=== PATIENT | male | born 1940 | race Caucasian/White ===

== ENCOUNTER → 2018-01-26 | Outpatient (CLI) | payer MEDICARE ==
--- NOTE | 2018-01-26 16:55 | CONS ---
CONSULTATION REASON FOR CONSULTATION: This is a consultation note for sleep apnea. HISTORY OF PRESENT ILLNESS: This patient was diagnosed having obstructive sleep apnea more than 15 years ago. This patient over the years has utilized 3 different CPAP machines and the last CPAP machine that he has had was at least 10 years old. He has a [employer] older generation CPAP unit which is set at a pressure of 9 cm of water. He is using a Comfort Gel blue nose mask. On today's evaluation the patient is coming in feeling tired and having problems with memory and he feels exhausted and he is waking up tired despite averaging about 7 hours of CPAP use per night. The functionality of his machine is being questioned at this point. He is not sure if he snores while on CPAP therapy. He does not wake up gasping for air or any choking sensation. His current [place] Score is at 9. No recent weight gain or weight loss. The patient is requesting reevaluation. PAST MEDICAL HISTORY: Obstructive sleep apnea. He also has history of pacemaker insertion. Hypertension, hyperlipidemia, and BPH and chronic depression. PAST SURGICAL HISTORY: Includes a pacemaker insertion, cholecystectomy, shoulder surgery, cataract surgery with lens implants and orthopedic knee surgery. DRUG ALLERGIES: Not known. OUTPATIENT MEDICATION LIST: Includes: 1. Losartan 100 mg p.o. daily. 2. Pravastatin 40 mg p.o. daily. 3. Loratadine 10 mg p.o. daily. 4. Doxazosin 4 mg p.o. daily. 5. Singular 10 a day. 6. Paxil 20 daily. 7. Aspirin 81 mg p.o. daily. 8. Motrin as needed. 9. Atenolol 25 mg 2 tablets a day. 10.Warfarin 5 mg, half a tablet Thursday, Saturdays and 1 tablet/10 mg for the rest of the week. FAMILY HISTORY: Noncontributory and negative for sleep apnea. SOCIAL HISTORY: Nonsmoker. No history of alcohol. No tobacco. No history of IV drugs. REVIEW OF SYSTEMS: 12-point review of system was done. He has excessive exhaustion and fatigued and wakes up tired. No insomnia. No grinding of the teeth. No sleepwalking. No anxiety or panic attacks. No palpitation. No heartburn. No anxiety or depression. No restlessness lower extremities. No sleepwalking or sleep talking. No claustrophobia. No sexual dysfunction. No sleep paralysis, hallucinations or cataplexy at this point. PHYSICAL EXAMINATION: His current vitals BP is 120/75, pulse 80, respirations 16, temperature 97.2, saturation 98% on room air. Height is 5 feet 8 inches, weight is 219, BMI 33.2. Neck size is 17-1/4 of an inch. GENERAL APPEARANCE: Calm comfortable. HEENT head is atraumatic, normocephalic. Neck short supple crowding of posterior pharynx, Mallampati class IV. LUNGS: Clear to auscultation. HEART: Sounds are regular rate and rhythm. Normal S1, S2. No S3, S4. No murmurs. ABDOMEN: Soft, nontender. No organomegaly. EXTREMITIES: No edema. No cyanosis or clubbing. IMPRESSION: 1. Symptomatic obstructive sleep apnea. The patient has not had an evaluation for more than 10 years. He is utilizing an older generation CPAP unit which is set at a pressure of 9 cm of water. The efficacy of the treatment is being under question as the patient is feeling more sleepy and exhausted during the day. In addition to that, he is having some short-term memory issues. His current [place] Score is at 9. PLAN: We will set up this patient for a split night study. This will be needed to reconfirm presence of obstructive sleep apnea and severity and following that, we will give the patient CPAP titration during which the pressure will be updated. The need for oxygen therapy will be assessed while on CPAP therapy especially with his underlying memory loss. He will be given mask interface and will make further recommendations accordingly. MMODL / IJN: [id number] /
== END | disposition home or self-care (01) ==
LOC: SLEEP 12:23
PROVIDERS: ATTEND Internal Medicine Critical Care Medicine
DX: G47.33 Obstructive sleep apnea (adult) (pediatric) (principal); I10 Essential (primary) hypertension; E78.5 Hyperlipidemia, unspecified; N40.0 Benign prostatic hyperplasia without lower urinary tract symptoms; F32.9 Major depressive disorder, single episode, unspecified; Z90.49 Acquired absence of other specified parts of digestive tract; Z98.890 Other specified postprocedural states; Z79.899 Other long term (current) drug therapy; Z79.82 Long term (current) use of aspirin; Z79.1 Long term (current) use of non-steroidal anti-inflammatories (NSAID); Z99.89 Dependence on other enabling machines and devices
CPT/HCPCS: 99211

== ENCOUNTER → 2018-04-27 | Outpatient (CLI) | payer MEDICARE ==
--- NOTE | 2018-04-27 18:16 | PN ---
PROGRESS NOTE This patient is 77, diagnosed having obstructive sleep apnea more than 15 years ago. During the years, he had 3 different CPAP units and his last machine was given to him approximately 10 years ago. This was an older generation [employer] unit. This was being used at the pressure of 9 cm of water. The patient saw me in the office and the patient underwent another CPAP titration and he was upgraded to an [employer] AutoSet unit which was set at a pressure of 9 cm of water also. On today's evaluation, he is coming in for a compliancy check. The patient is utilizing CPAP every night. He is benefiting from the treatment. I adjusted his humidity control and climate control to automatic mode. The patient has been averaging around 8.6 hours of CPAP use per night. His CPAP use for more than 4 hours is 100% of the time and his leak factor is 24 L/minute while using the Arboleda FX nose pillow. His apnea-hypopnea index while on treatment is down to 1.5. He has no specific complaints. Sleep quality is good. No major hypersomnia or sleepiness during the day. No other complaints otherwise. REVIEW OF SYSTEMS: A 12-point review of system was done. Positive findings are mentioned above ion history of present illness. BP is 115/72, pulse 60 respirations 16, weight is 215, temperature 98.3, saturation 98% on room air. GENERAL APPEARANCE: Calm, comfortable. Head is atraumatic, normocephalic. NECK: Supple. There is no supple. There is no JVD. There is no goiter or neck mass. Mallampati class IV. LUNGS: Clear to auscultation. HEART: Sounds regular rate and rhythm. Normal S1, S2. No S3. No murmurs. ABDOMEN: Soft, nontender. No organomegaly. EXTREMITIES: No edema. No cyanosis or clubbing. NEUROLOGIC: Alert and oriented x3. There are no focal neurological deficits. Psychiatrically, negative for anxiety or depression. IMPRESSION: 1. Obstructive sleep apnea, moderately severe, apnea-hypopnea index of 23. Patient undergoes successful CPAP therapy off with a pressure of 9 cm of water. Currently improved. Compliance data is reviewed. 2. History of. 3. Hypertension hyperlipidemia. 4. Benign prostatic hypertrophy. 5. Depression. 6. History of pacemaker insertion. PLAN: 1. Continue CPAP therapy at the same level of pressure. 2. Compliance data was reviewed and the results were good. 3. See me back in a year's time in followup, earlier if needed. MMODL / IJN: [id number] /
== END | disposition home or self-care (01) ==
LOC: SLEEP 15:36
PROVIDERS: ATTEND Internal Medicine Critical Care Medicine
DX: G47.33 Obstructive sleep apnea (adult) (pediatric) (principal); I10 Essential (primary) hypertension; E78.5 Hyperlipidemia, unspecified; N40.0 Benign prostatic hyperplasia without lower urinary tract symptoms; F32.9 Major depressive disorder, single episode, unspecified; Z95.0 Presence of cardiac pacemaker

== ENCOUNTER → 2019-05-17 | Outpatient (CLI) | payer MEDICARE ==
--- NOTE | 2019-05-17 20:36 | PN ---
PROGRESS NOTE This is a 78-year-old male patient coming in for a annual compliancy check. He has obstructive sleep apnea and he is currently using CPAP at a pressure of 9 cm of water. He is doing well. Unfortunately he is developing a component of dementia and memory loss. Nevertheless, his CPAP treatment remains extremely successful with the exception of some leak around the mask. He is using the Arboleda FX mask, which is causing leaks around the nostrils, and he is looking for alternative masks. Based on the compliance data, he has been averaging around 8.3 hours of CPAP use per night with a leak of 35 L/minute. His AHI while on treatment is down to 9.4. REVIEW OF SYSTEMS: Fourteen-point review of systems was done. Negative other than the things mentioned above in the history of present illness. His sleep quality is good. He is having difficulty with memory and concentration. The memory is mainly related to underlying dementia, as the patient is having loss in short-term memory. No other new complaints otherwise for now. PHYSICAL EXAMINATION: VITAL SIGNS: BP is 93/66, pulse 62, respirations 16, temperature 97.1, saturation 97% on room air. Height is 5 feet 8 inches, weight is 195, BMI 29.4. GENERAL APPEARANCE: Calm, comfortable. HEAD: Atraumatic, normocephalic. NECK: Supple. No JVD. No goiter or neck masses. LUNGS: Clear to auscultation. HEART: Heart sounds are regular rate and rhythm. Normal S1, S2. No S3, S4. No murmurs. ABDOMEN: Soft, nontender. No organomegaly. EXTREMITIES: No wounds. No sores. No ulcers. No edema. No cyanosis or clubbing. NEUROLOGIC: Alert and oriented x3. No focal neurological deficit. PSYCHIATRIC: Positive for dementia and short-term memory loss. Today he is awake and alert and there are no focal neurological deficits. IMPRESSION: 1. Obstructive sleep apnea, apnea/hypopnea index of 23, consistent with moderately severe disease. 2. Dementia. 3. Hypertension. 4. Hyperlipidemia. 5. Benign prostatic hypertrophy. 6. Depression. 7. History of pacemaker insertion. PLAN: 1. Continue CPAP therapy. Increase the pressure to 10 cm of water. 2. Offer this patient the Nuance large-sized nose pillows. 3. Encourage weight loss. 4. See me back in a year's time, earlier if needed. Treatment is successful for now. Would like to bring his AHI to less than 5 and improve the leaks. I am hoping the Nuance nose pillows and increase in pressure are going to achieve these goals. MMODL / IJN: [id number] /
== END | disposition home or self-care (01) ==
LOC: SLEEP 14:19
PROVIDERS: ATTEND Internal Medicine Critical Care Medicine
DX: G47.33 Obstructive sleep apnea (adult) (pediatric) (principal); F03.90 Unspecified dementia, unspecified severity, without behavioral disturbance, psychotic disturbance, mood disturbance, and anxiety; I10 Essential (primary) hypertension; E78.5 Hyperlipidemia, unspecified; N40.0 Benign prostatic hyperplasia without lower urinary tract symptoms; F32.9 Major depressive disorder, single episode, unspecified; Z99.89 Dependence on other enabling machines and devices

== ENCOUNTER → 2020-02-20 | Outpatient (CLI) | payer MEDICARE ==
[2020-02-20 08:49] LABS: HCT 42.1 % (39.0-53.0); HGB 13.5 gm/dL (13.0-17.5); MCH 29.5 pg (25.0-35.0); MCHC 32.2 g/dL (31.0-37.0); MCV 91.8 fL (80.0-100.0); Mean Platelet Volume 6.7; Platelet Count 194 k/uL (150-450); RBC 4.59 m/uL (4.30-5.90); RDW 14.4 % (11.5-15.5); WBC 8.8 k/uL (3.8-10.6)
[2020-02-20 17:55] LABS: Anion Gap 7.4 mmol/L (4.00-12.00); Carbon Dioxide 26.6 mmol/L (21.6-31.8); Chol/HDL Ratio 2.15; LDL Cholesterol,Calculated 59.2 mg/dL (0.0-131.0); Non-African American GFR(CKD) 52.6 (60.0-200.0); Potassium 4.3 mmol/L (3.5-5.5); VLDL Calculation 11.8 mg/dL (5.00-40.00)
== END | disposition home or self-care (01) ==
LOC: LABWHC1 08:03
PROVIDERS: ATTEND Internal Medicine Cardiovascular Disease
DX: E78.2 Mixed hyperlipidemia (principal); R55 Syncope and collapse
CPT/HCPCS: 36415; 80051; 80061; 82565; 84443; 84450; 84460; 84520; 85027

== ENCOUNTER 2020-09-10 10:06 | Emergency (ER) | payer MEDICARE ==
[2020-09-10 10:11] VITALS: TEMP 97.8
[2020-09-10] MEDS ORDERED: ONDANSETRON 4 MG/2 ML VIAL IVP STA (10:49)
[2020-09-10] MEDS ORDERED: HYDROmorphone 0.5 MG/0.5 ML SYRINGE IVP STA (10:49)
[2020-09-10] MEDS ORDERED: SODIUM CHLORIDE 0.9% 1,000 ML IV STA (10:49)
--- NOTE | 2020-09-10 11:05 | ED ---
General Adult HPI <Julius Castro - Last Filed: 09/10/20 14:25> - General Source: patient, RN notes reviewed Mode of arrival: wheelchair Limitations: no limitations <Obed Mccarthy - Last Filed: 09/10/20 14:28> - General Chief complaint: Urogenital Stated complaint: Male Time Seen by Provider: 09/10/20 10:41 - History of Present Illness Initial comments: 79-year-old male presents emergency Department with chief complaint of right groin swelling. Patient states he woke up with this morning had no symptoms yesterday. No history of a hernia. Patient states his prior cholecystectomy no other abdominal surgeries. No dysuria states he did have bouts morning was slightly difficult. Patient states that his pain is increasing and he notices swelling this morning. No trauma denies chest pain, shortness breath, fever or chills. (Obed Mccarthy) - Related Data Home Medications Medication Instructions Recorded Confirmed Atenolol [Tenormin] 50 mg PO DAILY 09/10/20 09/10/20 Doxazosin Mesylate 8 mg PO HS 09/10/20 09/10/20 Ibuprofen [Motrin Ib] 800 mg PO Q8H PRN 09/10/20 09/10/20 Loratadine [Claritin] 10 mg PO HS 09/10/20 09/10/20 Montelukast [Singulair] 10 mg PO HS 09/10/20 09/10/20 Pravastatin Sodium [Pravachol] 40 mg PO HS 09/10/20 09/10/20 Warfarin Sodium [Jantoven] 2.5 mg PO SUWE 09/10/20 09/10/20 Warfarin Sodium [Jantoven] 5 mg PO MOTUTHFRSA 09/10/20 09/10/20 Allergies Allergy/AdvReac Type Severity Reaction Status Date / Time No Known Allergies Allergy Verified 09/10/20 10:55 Review of Systems ROS Other: All systems not noted in ROS Statement are negative. <Julius Castro - Last Filed: 09/10/20 14:25> ROS Other: All systems not noted in ROS Statement are negative. <Obed Mccarthy - Last Filed: 09/10/20 14:28> ROS Statement: Those systems with pertinent positive or pertinent negative responses have been documented in the HPI. Past Medical History Past Medical History: Unable to Obtain History of Any Multi-Drug Resistant Organisms: None Reported Past Surgical History: Unable to Obtain Smoking Status: Never smoker Past Alcohol Use History: None Reported Past Drug Use History: None Reported <Obed Mccarthy - Last Filed: 09/10/20 14:28> General Exam Limitations: no limitations General appearance: alert, in no apparent distress Head exam: Present: atraumatic, normocephalic, normal inspection Eye exam: Present: normal appearance, PERRL, EOMI. Absent: scleral icterus, conjunctival injection, periorbital swelling ENT exam: Present: normal exam, mucous membranes moist Neck exam: Present: normal inspection, full ROM. Absent: tenderness, meningismus, lymphadenopathy Respiratory exam: Present: normal lung sounds bilaterally. Absent: respiratory distress, wheezes, rales, rhonchi, stridor Cardiovascular Exam: Present: regular rate, normal rhythm, normal heart sounds. Absent: systolic murmur, diastolic murmur, rubs, gallop, clicks GI/Abdominal exam: Present: soft, normal bowel sounds, hernia (Large right ingui nal hernia, swelling to the scrotum, severe tenderness with palpation.). Absent: distended, tenderness, guarding, rebound, rigid <Obed Mccarthy - Last Filed: 09/10/20 14:28> Course Vital Signs 09/10/20 09/10/20 09/10/20 10:08 11:54 14:00 Temperature 97.8 F Pulse Rate 63 68 65 Respiratory 16 18 18 Rate Blood Pressure 193/119 170/98 184/98 O2 Sat by Pulse 99 98 99 Oximetry Medical Decision Making - Lab Data Result diagrams: 09/10/20 11:00 09/10/20 11:00 <Julius Castro - Last Filed: 09/10/20 14:25> - Lab Data Result diagrams: 09/10/20 11:00 09/10/20 11:00 <Obed Mccarthy - Last Filed: 09/10/20 14:28> - Medical Decision Making Patient reexamined and reevaluated by myself, Dr. Castro. Patient does have right-sided inguinal hernia that is easily reduced, further from previous. Patient has no abdominal symptoms at this time. Abdomen soft and nontender. Patient feels good at this time. Case was discussed with Dr. Monroy from surgery who is comfortable with discharge home. She is made aware of CT fi ndings. She will follow up with patient. (Julius Castro) Patient is greatly improved after reduction in emergency department. CT results discussed with on-call surgery. Patient feels comfortable discharged patient will follow-up with the office with Dr. Monroy return parameters were discussed. (Obed Mccarthy) - Lab Data Lab Results 09/10/20 09/10/20 09/10/20 Range/Units 11:00 11:00 11:00 WBC 8.2 (3.8-10.6) k/uL RBC 5.25 (4.30-5.90) m/uL Hgb 15.1 (13.0-17.5) gm/dL Hct 46.8 (39.0-53.0) % MCV 89.2 (80.0-100.0) fL MCH 28.7 (25.0-35.0) pg MCHC 32.2 (31.0-37.0) g/dL RDW 14.5 (11.5-15.5) % Plt Count 192 (150-450) k/uL MPV 6.9 Neutrophils % 77 % Lymphocytes % 16 % Monocytes % 5 % Eosinophils % 1 % Basophils % 1 % Neutrophils # 6.3 (1.3-7.7) k/uL Lymphocytes # 1.3 (1.0-4.8) k/uL Monocytes # 0.4 (0-1.0) k/uL Eosinophils # 0.1 (0-0.7) k/uL Basophils # 0.1 (0-0.2) k/uL PT 33.9 H (9.0-12.0) sec INR 3.5 H (<1.2) APTT 34.5 H (22.0-30.0) sec Sodium 138 (137-145) mmol/L Potassium 4.3 (3.5-5.1) mmol/L Chloride 107 (98-107) mmol/L Carbon Dioxide 25 (22-30) mmol/L Anion Gap 6 mmol/L BUN 17 (9-20) mg/dL Creatinine 1.27 H (0.66-1.25) mg/dL Est GFR (CKD-EPI)AfAm 63 (>60 ml/min/1.73 sqM) Est GFR (CKD-EPI)NonAf 54 (>60 ml/min/1.73 sqM) Glucose 109 H (74-99) mg/dL Plasma Lactic Acid Luis (0.7-2.0) mmol/L Calcium 9.4 (8.4-10.2) mg/dL Total Bilirubin 1.0 (0.2-1.3) mg/dL AST 28 (17-59) U/L ALT 18 (4-49) U/L Alkaline Phosphatase 143 H (38-126) U/L Total Protein 7.5 (6.3-8.2) g/dL Albumin 4.4 (3.5-5.0) g/dL Amylase 41 (30-110) U/L Lipase 44 (23-300) U/L 09/10/20 Range/Units 11:00 WBC (3.8-10.6) k/uL RBC (4.30-5.90) m/uL Hgb (13.0-17.5) gm/dL Hct (39.0-53.0) % MCV (80.0-100.0) fL MCH (25.0-35.0) pg MCHC (31.0-37.0) g/dL RDW (11.5-15.5) % Plt Count (150-450) k/uL MPV Neutrophils % % Lymphocytes % % Monocytes % % Eosinophils % % Basophils % % Neutrophils # (1.3-7.7) k/uL Lymphocytes # (1.0-4.8) k/uL Monocytes # (0-1.0) k/uL Eosinophils # (0-0.7) k/uL Basophils # (0-0.2) k/uL PT (9.0-12.0) sec INR (<1.2) APTT (22.0-30.0) sec Sodium (137-145) mmol/L Potassium (3.5-5.1) mmol/L Chloride (98-107) mmol/L Carbon Dioxide (22-30) mmol/L Anion Gap mmol/L BUN (9-20) mg/dL Creatinine (0.66-1.25) mg/dL Est GFR (CKD-EPI)AfAm (>60 ml/min/1.73 sqM) Est GFR (CKD-EPI)NonAf (>60 ml/min/1.73 sqM) Glucose (74-99) mg/dL Plasma Lactic Acid Luis 1.3 (0.7-2.0) mmol/L Calcium (8.4-10.2) mg/dL Total Bilirubin (0.2-1.3) mg/dL AST (17-59) U/L ALT (4-49) U/L Alkaline Phosphatase (38-126) U/L Total Protein (6.3-8.2) g/dL Albumin (3.5-5.0) g/dL Amylase (30-110) U/L Lipase (23-300) U/L Disposition <Julius Castro - Last Filed: 09/10/20 14:25> Is patient prescribed a controlled substance at d/c from ED?: No Time of Disposition: 14:28 <Obed Mccarthy - Last Filed: 09/10/20 14:28> Clinical Impression: Inguinal hernia Disposition: HOME SELF-CARE Condition: Stable Instructions (If sedation given, give patient instructions): Inguinal Hernia (ED) Additional Instructions: Please return to the Emergency Department if symptoms worsen or any other concerns. Referrals: Erci Portillo MD [Primary Care Provider] - 1-2 days Juanita Huggins MD [STAFF PHYSICIAN] - 1-2 days
[2020-09-10 11:13] LABS: Basophils # (A) 0.1 k/uL (0-0.2); Basophils % (A) 1 %; Eosinophils # (A) 0.1 k/uL (0-0.7); Eosinophils % (A) 1 %; HCT 46.8 % (39.0-53.0); HGB 15.1 gm/dL (13.0-17.5); Lymphocytes # (A) 1.3 k/uL (1.0-4.8); Lymphocytes % (A) 16 %; MCH 28.7 pg (25.0-35.0); MCHC 32.2 g/dL (31.0-37.0); MCV 89.2 fL (80.0-100.0); Mean Platelet Volume 6.9; Monocytes # (A) 0.4 k/uL (0-1.0); Monocytes % (A) 5 %; Neutrophils # (A) 6.3 k/uL (1.3-7.7); Neutrophils % (A) 77 %; Platelet Count 192 k/uL (150-450); RBC 5.25 m/uL (4.30-5.90); RDW 14.5 % (11.5-15.5); WBC 8.2 k/uL (3.8-10.6)
[2020-09-10 11:25] LABS: INR 3.5 (<1.2); Partial Thromboplastin Time 34.5 sec (22.0-30.0); Prothrombin Time 33.9 sec (9.0-12.0)
[2020-09-10 11:26] LABS: Albumin 4.4 g/dL (3.5-5.0); Calcium 9.4 mg/dL (8.4-10.2); Potassium 4.3 mmol/L (3.5-5.1); Total Protein 7.5 g/dL (6.3-8.2)
[2020-09-10 11:56] VITALS: RESP 18
--- NOTE | 2020-09-10 13:02 | CT ---
EXAMINATION TYPE: CT abdomen pelvis w con DATE OF EXAM: 09/10/2020 COMPARISON: NONE HISTORY: 79-year-old male right lower quadrant pain, hernia TECHNIQUE: Contiguous axial scanning of the abdomen and pelvis following administration of 100 ml Iso te 300 IV contrast. Delayed images through the kidneys and coronal/sagittal reconstructions perform ed. CT DLP: 1475.1 mGycm Automated exposure control for dose reduction was used. FINDINGS: The limits of normal in size. Right atrial and right ventricular pacer leads are demonstrated. No per icardial effusion. Prominent dependent atelectasis without pleural effusion. Small hiatal hernia. No focal liver lesion. Mild periportal edema. Portal venous system is patent. No biliary ductal dilat ation. Cholecystectomy clips are present. Adrenal glands, kidneys, spleen, and pancreas show no gross abnormal body. No free fluid or free air. Numerous fluid-filled small bowel loops are present in the lower abdomen and pelvis with borderline d istention of 2.6 cm. Some mild inflammation mesenteric edema is noted in the right upper quadrant and anterior right pelvis with a right-sided indirect inguinal hernia containing some distended, fluid-f illed small bowel loops. There is associated moderate fluid in the hernia sac within the upper scrotu m. Hernia sac overall measures 12.4 cm craniocaudal by 5.9 cm wide by 5.1 cm AP. Refer to coronal jamil ge 38 and axial image 104. The colon is collapsed. Appendix is normal. Mild left-sided colonic diverticulosis without pericoloni c inflammatory change. No mesenteric or retroperitoneal lymphadenopathy. Some focal 2.6 cm nodular inflammation anterior left lower quadrant shows central fat density adjacen t to the proximal sigmoid colon, axial image 65. Bladder urine distended. Prostate gland enlargement 5.4 cm wide. Pelvic phleboliths. No pelvic lympha denopathy is seen. Bones: Mild degenerative change of the hips. [facility] within the lower thoracic and upper lumbar spine. A ccentuated lumbar lordosis. Moderate degenerative disc disease L4-L5 and hypertrophic facet arthropat hy. IMPRESSION: 1. INDIRECT RIGHT INGUINAL HERNIA CONTAINING LOOPS OF SMALL BOWEL, ITS ASSOCIATED MESENTERY, AND MODE RATE ASCITES FLUID. THE HERNIA SAC MEASURES 12.4 X 5.9 X 5.1 CM AND RESULTS IN AN EARLY SMALL BOWEL O BSTRUCTION WITH SMALL BOWEL LOOPS MEASURING 2.6 CM AT THIS TIME. 2. REACTIVE MESENTERIC EDEMA IN THE RIGHT LOWER QUADRANT. 3. FOCAL 2.6 CM NODULAR INFLAMMATION ANTERIOR LEFT LOWER QUADRANT ADJACENT TO THE PROXIMAL SIGMOID CO VICENTE SHOWS CENTRAL FAT DENSITY. FINDINGS CAN BE SEEN IN SETTING OF EPIPLOIC APPENDAGITIS.
[2020-09-10 14:01] VITALS: BP 184/98; PULSE 65
== END 2020-09-10 14:58 | disposition home or self-care (01) ==
LOC: EC 10:06
DX: K40.90 Unilateral inguinal hernia, without obstruction or gangrene, not specified as recurrent (principal); Z79.899 Other long term (current) drug therapy; Z79.01 Long term (current) use of anticoagulants; Z90.49 Acquired absence of other specified parts of digestive tract
CPT/HCPCS: 80053; 82150; 83605; 83690; 85025; 85610; 85730; 74177; 99284; 96374; 96375; 96361; J2405; J1170; Q9967

== ENCOUNTER → 2021-02-19 | Outpatient (CLI) | payer MEDICARE ==
--- NOTE | 2021-02-19 17:50 | PN ---
PROGRESS NOTE Eric is 80, coming in for a regular check regarding obstructive sleep apnea. His last evaluation was in May 2019. The patient is known to have moderate severe disease with an AHI of 23, and the patient has been on a CPAP pressure of 10 cm of water. Since his last evaluation, the patient has lost weight and currently is weighing around 107 pounds from a baseline of 195. Based on a 30-day compliance, the patient has been utilizing his machine every night. His CPAP use for more than 4 hours 100%, averaging around 8.9 hours of CPAP use per night. Leak is around 46 L/minute. His AHI is down to 1.0. No hypersomnia or sleepiness during the day. No angina. No palpitations. No nighttime nocturnal shortness of breath. No naps during the day. He is forgetful. He has underlying dementia. He is currently living with his . No new onset comorbidities. REVIEW OF SYSTEMS: Fourteen-point review of system was done. Positive findings are mentioned in history of present illness. HISTORY OF PRESENT ILLNESS: BP is 134/84, pulse 60, respirations 16, temperature 96.3, saturation 99% on room air. Height is 5 feet 10 inches, weight 187, Greer score of 4. BMI 28.8. GENERAL APPEARANCE: Calm, comfortable. HEAD is atraumatic, normocephalic. NECK: Supple. There is no JVD. No goiter or neck masses. Mallampati class 4. LUNGS: Diminished otherwise clear. HEART: Heart sounds are regular rate and rhythm. Normal S1, S2. No S3, S4. No murmurs. ABDOMEN: Soft, nontender. No organomegaly. EXTREMITIES: No edema, no cyanosis or clubbing. NEUROLOGIC: Awake and alert. There is no focal neurological deficit. IMPRESSION: 1. ZAK with an AHI of 23, continues to be successfully treated with a CPAP pressure of 10 cm of water. No hypersomnia or sleepiness. 2. Dementia, currently inactive and stable. 3. Hypertension, well controlled. 4. Hyperlipidemia. 5. Benign prostatic hypertrophy. 6. Depression. 7. History of pacemaker insertion. PLAN: 1. Refill this patient's supplies including a his nose mask. The patient was given AirFit P30 nasal pillows. 2. Encourage further weight loss. 3. Comorbidities are all inactive and stable. No need for any further adjustments on the pressure setting. Keep the pressure at 10. Continue using the CPAP and see me back in a year's time in followup, earlier if needed. MMODL / IJN: [id number] /

== ENCOUNTER 2021-02-27 16:13 | Inpatient (IN) | payer MEDICARE ==
[2021-02-27 16:50] LABS: Basophils % (A) 1 %; Eosinophils # (A) 0.1 k/uL (0-0.7); Eosinophils % (A) 2 %; HCT 45.3 % (39.0-53.0); HGB 15.6 gm/dL (13.0-17.5); Lymphocytes # (A) 1.6 k/uL (1.0-4.8); Lymphocytes % (A) 23 %; MCH 30.3 pg (25.0-35.0); MCHC 34.3 g/dL (31.0-37.0); MCV 88.2 fL (80.0-100.0); Mean Platelet Volume 6.6; Monocytes # (A) 0.3 k/uL (0-1.0); Monocytes % (A) 5 %; Neutrophils # (A) 4.7 k/uL (1.3-7.7); Neutrophils % (A) 68 %; Platelet Count 145 k/uL (150-450); RBC 5.14 m/uL (4.30-5.90); RDW 14.2 % (11.5-15.5); WBC 6.9 k/uL (3.8-10.6)
[2021-02-27 16:53] LABS: Glucose,Whole Blood 126 mg/dL (75-99)
[2021-02-27] MEDS ORDERED: SODIUM CHLORIDE 0.9% 500 ML 500 ML IV ONE (17:03)
[2021-02-27 17:04] LABS: INR 1.7 (<1.2); Partial Thromboplastin Time 25.9 sec (22.0-30.0); Prothrombin Time 16.6 sec (9.0-12.0)
[2021-02-27 17:06] LABS: Albumin 4.3 g/dL (3.5-5.0); Calcium 9.4 mg/dL (8.4-10.2); Total Bilirubin 0.6 mg/dL (0.2-1.3)
--- NOTE | 2021-02-27 17:08 | ED ---
General Adult HPI - General Chief complaint: Neuro Symptoms/Deficit Stated complaint: Numbness in Face Time Seen by Provider: 02/27/21 16:28 Source: patient, family, RN notes reviewed, old records reviewed Mode of arrival: wheelchair Limitations: no limitations - History of Present Illness Initial comments: 80-year-old male presenting with right facial numbness which is been present since he woke this morning at 7 AM. He is presenting at approximately 4:30 PM. According to his he did have some facial droop but this resolved. Patient is on Coumadin.patient had contacted his primary care physician who requests the patient presented to the emergency department for evaluation. Patient denies any limb weakness. No headache. No other symptoms. - Related Data Home Medications Medication Instructions Recorded Confirmed Atenolol [Tenormin] 50 mg PO DAILY 09/10/20 02/27/21 Doxazosin Mesylate 8 mg PO DAILY 09/10/20 02/27/21 Montelukast [Singulair] 10 mg PO DAILY 09/10/20 02/27/21 Pravastatin Sodium [Pravachol] 40 mg PO DAILY 09/10/20 02/27/21 Warfarin Sodium [Jantoven] 2.5 mg PO CURIEL 09/10/20 02/27/21 Warfarin Sodium [Jantoven] 5 mg PO MOTUWETHFRSA 09/10/20 02/27/21 Cyanocobalamin (Vitamin B-12) 1,000 mcg PO DAILY 02/27/21 02/27/21 [Vitamin B-12] Donepezil HCl [Aricept] 5 mg PO DAILY 02/27/21 02/27/21 Ergocalciferol (Vitamin D2) 1,250 mcg PO TH 02/27/21 02/27/21 [Drisdol (50,000 Iu)] HYDROcodone/APAP 5-325MG [[place] 1 tab PO QID PRN 02/27/21 02/27/21 5-325] Losartan Potassium 50 mg PO BID 02/27/21 02/27/21 Memantine HCl 5 mg PO DAILY 02/27/21 02/27/21 Allergies Allergy/AdvReac Type Severity Reaction Status Date / Time No Known Allergies Allergy Verified 02/27/21 17:41 Review of Systems ROS Statement: Those systems with pertinent positive or pertinent negative responses have been documented in the HPI. ROS Other: All systems not noted in ROS Statement are negative. Past Medical History Past Medical History: Coronary Artery Disease (CAD), Hyperlipidemia, Hypertension History of Any Multi-Drug Resistant Organisms: None Reported Past Surgical History: Hernia Repair, Pacemaker Past Psychological History: No Psychological Hx Reported Smoking Status: Never smoker Past Alcohol Use History: None Reported Past Drug Use History: None Reported General Exam Limitations: no limitations General appearance: alert, in no apparent distress Head exam: Present: atraumatic, normocephalic Eye exam: Present: normal appearance, PERRL ENT exam: Present: normal exam Neck exam: Present: normal inspection. Absent: tenderness, meningismus Respiratory exam: Present: normal lung sounds bilaterally. Absent: respiratory distress, wheezes Cardiovascular Exam: Present: regular rate, normal rhythm GI/Abdominal exam: Present: soft. Absent: distended, tenderness Extremities exam: Present: normal inspection, normal capillary refill. Absent: pedal edema Neurological exam: Present: alert, oriented X3, motor sensory deficit (right facial numbness, no facial droop, no limb weakness, NIH of 1) Psychiatric exam: Present: normal affect, normal mood Skin exam: Present: warm, dry, intact. Absent: cyanosis, diaphoretic Course Vital Signs 02/27/21 02/27/21 02/27/21 16:21 16:35 16:42 Temperature 98.3 F 98.3 F 98.3 F Pulse Rate 66 66 74 Respiratory 20 16 16 Rate Blood Pressure 209/120 209/120 O2 Sat by Pulse 99 99 98 Oximetry 02/27/21 02/27/21 02/27/21 16:45 17:00 17:15 Temperature 98.3 F 98.3 F 98.3 F Pulse Rate 68 62 64 Respiratory 16 16 16 Rate Blood Pressure 201/104 196/101 188/102 O2 Sat by Pulse 98 97 98 Oximetry 02/27/21 02/27/21 02/27/21 17:30 18:00 18:31 Temperature 98.3 F 98.3 F Pulse Rate 62 74 61 Respiratory 16 16 16 Rate Blood Pressure 188/111 212/114 203/112 O2 Sat by Pulse 97 98 Oximetry EKG Findings - EKG Comments: EKG Findings:: EKG: Paced rhythm, rate 74, QRS duration 184, QTC 535, no ST segment elevation. Medical Decision Making - Medical Decision Making 72-year-old male who had presented with right-sided facial numbness and a reported facial droop according to his . Facial droop resolved. NIH of 1. This began when the patient woke this morning at 7 AM. I did discuss the case with Dr. Niño, he is not a candidate for intervention or TPA given the timing and minimal symptoms and the fact that he is on Coumadin. CT was performed which was negative for intracranial hemorrhage or mass effect. laboratory studies within normal limits. Patient given an aspirin in the emergency department he will be admitted for further stroke evaluation. Case is discussed with Shad caldwell for [facility] - Lab Data Result diagrams: 02/27/21 16:39 02/27/21 16:39 Lab Results 02/27/21 02/27/21 02/27/21 Range/Units 16:39 16:39 16:39 WBC 6.9 (3.8-10.6) k/uL RBC 5.14 (4.30-5.90) m/uL Hgb 15.6 (13.0-17.5) gm/dL Hct 45.3 (39.0-53.0) % MCV 88.2 (80.0-100.0) fL MCH 30.3 (25.0-35.0) pg MCHC 34.3 (31.0-37.0) g/dL RDW 14.2 (11.5-15.5) % Plt Count 145 L (150-450) k/uL MPV 6.6 Neutrophils % 68 % Lymphocytes % 23 % Monocytes % 5 % Eosinophils % 2 % Basophils % 1 % Neutrophils # 4.7 (1.3-7.7) k/uL Lymphocytes # 1.6 (1.0-4.8) k/uL Monocytes # 0.3 (0-1.0) k/uL Eosinophils # 0.1 (0-0.7) k/uL Basophils # 0.0 (0-0.2) k/uL PT 16.6 H (9.0-12.0) sec INR 1.7 H (<1.2) APTT 25.9 (22.0-30.0) sec Sodium 140 (137-145) mmol/L Potassium 4.0 (3.5-5.1) mmol/L Chloride 107 (98-107) mmol/L Carbon Dioxide 26 (22-30) mmol/L Anion Gap 7 mmol/L BUN 19 (9-20) mg/dL Creatinine 1.18 (0.66-1.25) mg/dL Est GFR (CKD-EPI)AfAm 68 (>60 ml/min/1.73 sqM) Est GFR (CKD-EPI)NonAf 59 (>60 ml/min/1.73 sqM) Glucose 120 H (74-99) mg/dL POC Glucose (mg/dL) (75-99) mg/dL POC Glu Assistant Plant Manager ID Calcium 9.4 (8.4-10.2) mg/dL Total Bilirubin 0.6 (0.2-1.3) mg/dL AST 22 (17-59) U/L ALT 13 (4-49) U/L Alkaline Phosphatase 140 H (38-126) U/L Troponin I (0.000-0.034) ng/mL Total Protein 7.0 (6.3-8.2) g/dL Albumin 4.3 (3.5-5.0) g/dL 02/27/21 02/27/21 Range/Units 16:39 16:42 WBC (3.8-10.6) k/uL RBC (4.30-5.90) m/uL Hgb (13.0-17.5) gm/dL Hct (39.0-53.0) % MCV (80.0-100.0) fL MCH (25.0-35.0) pg MCHC (31.0-37.0) g/dL RDW (11.5-15.5) % Plt Count (150-450) k/uL MPV Neutrophils % % Lymphocytes % % Monocytes % % Eosinophils % % Basophils % % Neutrophils # (1.3-7.7) k/uL Lymphocytes # (1.0-4.8) k/uL Monocytes # (0-1.0) k/uL Eosinophils # (0-0.7) k/uL Basophils # (0-0.2) k/uL PT (9.0-12.0) sec INR (<1.2) APTT (22.0-30.0) sec Sodium (137-145) mmol/L Potassium (3.5-5.1) mmol/L Chloride (98-107) mmol/L Carbon Dioxide (22-30) mmol/L Anion Gap mmol/L BUN (9-20) mg/dL Creatinine (0.66-1.25) mg/dL Est GFR (CKD-EPI)AfAm (>60 ml/min/1.73 sqM) Est GFR (CKD-EPI)NonAf (>60 ml/min/1.73 sqM) Glucose (74-99) mg/dL POC Glucose (mg/dL) 126 H (75-99) mg/dL POC Glu Assistant Plant Manager ID Angelitoheart, Dara Calcium (8.4-10.2) mg/dL Total Bilirubin (0.2-1.3) mg/dL AST (17-59) U/L ALT (4-49) U/L Alkaline Phosphatase (38-126) U/L Troponin I <0.012 (0.000-0.034) ng/mL Total Protein (6.3-8.2) g/dL Albumin (3.5-5.0) g/dL Critical Care Time Critical Care Time: Yes Total Critical Care Time: 35 Disposition Clinical Impression: Cerebrovascular accident (CVA) Disposition: ADMITTED IP TO THIS [facility] Condition: Stable Is patient prescribed a controlled substance at d/c from ED?: No Referrals: Gloria De Leon MD [Primary Care Provider] - 1-2 days Decision to Admit Reason: Admit from EC Decision Date: 02/27/21 Decision Time: 19:08
--- NOTE | 2021-02-27 17:20 | CT ---
EXAMINATION TYPE: CT brain wo con DATE OF EXAM: 02/27/2021 COMPARISON: CT brain 08/06/2013 HISTORY: Neuro deficit, acute, stroke suspected CT DLP: 1100.4 mGycm Automated exposure control for dose reduction was used. FINDINGS: There is cortical atrophy, there are cerebral vascular calcifications. There is no hemorrhage or hydr ocephalus. Periventricular white matter shows patchy low attenuation. IMPRESSION: NO ACUTE ABNORMALITY. AGE-RELATED CHANGES OF ATROPHY AND PROBABLE CHRONIC SMALL VESSEL ISCHEMIA.
--- NOTE | 2021-02-27 17:29 | XR ---
EXAMINATION TYPE: XR chest 2V DATE OF EXAM: 02/27/2021 COMPARISON: Chest x-ray 08/06/2013 HISTORY: Altered mental status TECHNIQUE: Frontal and lateral views of the chest are obtained. FINDINGS: There is no focal air space opacity, pleural effusion, or pneumothorax seen. The cardiac silhouette size is within normal limits. There is a generator in the left pectoral region, there ar e leads in right atrium and ventricle. Prominent lung volumes suggest underlying COPD. The osseous st ructures are intact. IMPRESSION: No acute cardiopulmonary process.
[2021-02-27] MEDS ORDERED: ASPIRIN 325 MG TAB PO STA (17:56)
[2021-02-27] MEDS ORDERED: LOSARTAN 50 MG TAB PO STA (18:34)
[2021-02-27] MEDS: SODIUM CHLORIDE 0.9% 1,000 ML IV SCH (19:18)
[2021-02-27] MEDS: ATORVASTATIN 80 MG TAB PO SCH (21:24)
[2021-02-27] MEDS ORDERED: HYDROcodone/APAP 5-325MG 1 EACH TAB PO PRN (21:51)
[2021-02-27] MEDS ORDERED: hydrALAZINE HCL 20 MG/ML 1 ML VIAL IVP PRN (21:59)
--- NOTE | 2021-02-27 21:59 | US ---
EXAMINATION TYPE: US carotid duplex BILAT DATE OF EXAM: 02/27/2021 COMPARISON: NONE CLINICAL HISTORY: Stenosis. Stenosis per order. Facial numbness, vision changes. Hx hypertension, hyp erlipidemia. EXAM MEASUREMENTS: RIGHT: Peak Systolic Velocity (PSV) cm/sec ----- Right CCA: 48.6 ----- Right ICA: 40.6 ----- Right ECA: 104.0 ICA/CCA ratio: 0.8 RIGHT: End Diastole cm/sec ----- Right CCA: 8.8 ----- Right ICA: 12.1 ----- Right ECA: 0.0 LEFT: Peak Systolic Velocity (PSV) cm/sec ----- Left CCA: 65.2 ----- Left ICA: 59.7 ----- Left ECA: 64.2 ICA/CCA ratio: 0.9 LEFT: End Diastole cm/sec ----- Left CCA: 10.2 ----- Left ICA: 8.0 ----- Left ECA: 0.0 VERTEBRALS (direction of flow): Right Vertebral: Antegrade Left Vertebral: Antegrade Rhythm: Normal Grayscale, color Doppler, spectral Doppler imaging performed of the carotid arteries. Waveform analys is does not show significant stenosis of the proximal internal carotid arteries by Doppler criteria. Intimal thickening seen bilaterally. Plaque seen within bilateral carotid bulbs and left ICA. No elev ated velocities at this time. IMPRESSION: No hemodynamic significant stenosis of the proximal internal carotid arteries by Doppler criteria, an indirect measurement of carotid stenosis Criteria for Assigning % of Stenosis / Diameter reduction (Estimation based on the indirect measurements of the internal carotid artery velocities (ICA PSV). 1. Normal (no stenosis)=ICA PSV < 125 cm/s: ratio < 2.0: ICA EDV<40 cm/s. 2. Less than 50% stenosis=ICA PSV < 125 cm/s: ratio < 2.0: ICA EDV<40 cm/s. 3. 50 to 69% stenosis=ICA PSV of 125 to 230 cm/s: ration 2.0 ? 4.0: ICA EDV 40-100 cm/s. 4. Greater than 70% stenosis to near occlusion= ICA PSV > 230 cm/s: ratio > 4.0: ICA EDV > 100 cm/s. 5. Near occlusion= ICA PSV velocities may be low or undetectable: variable ratio and ICA EDV. 6. Total occlusion=unable to detect flow.
[2021-02-27] MEDS: carvediloL 12.5 MG TAB PO SCH (22:09)
[2021-02-27] MEDS ORDERED: WARFARIN 5 MG TAB PO SCH (22:15)
[2021-02-27] MEDS ORDERED: WARFARIN 5 MG TAB PO ONE (22:30)
[2021-02-28] MEDS: carvediloL 12.5 MG TAB PO SCH ×2 (06:14→17:26)
[2021-02-28] MEDS: SODIUM CHLORIDE 0.9% 1,000 ML IV SCH ×3 (06:16→20:01)
[2021-02-28 08:39] LABS: INR 1.7 (<1.2); Prothrombin Time 17.3 sec (9.0-12.0)
[2021-02-28] MEDS: DONEPEZIL 5 MG TAB PO SCH (09:40)
[2021-02-28] MEDS: LOSARTAN 50 MG TAB PO SCH ×2 (09:40→20:01)
[2021-02-28] MEDS: MEMANTINE 5 MG TAB PO SCH (09:40)
[2021-02-28] MEDS: MONTELUKAST 10 MG TAB PO SCH (09:40)
[2021-02-28] MEDS: DOXAZOSIN 4 MG TAB PO SCH (09:41)
--- NOTE | 2021-02-28 12:39 | ECHOF ---
Referral Reason:Thrombus MEASUREMENTS -------- HEIGHT: 175.3 cm WEIGHT: 81.7 kg BP: RVIDd: 3.0 cm (< 3.3) IVSd: 1.2 cm (0.6 - 1.1) LVIDd: 4.2 cm (3.9 - 5.3) LVPWd: 1.0 cm (0.6 - 1.1) IVSs: 1.4 cm LVIDs: 2.8 cm LVPWs: 1.7 cm LA Diam: 3.8 cm (2.7 - 3.8) LAESV Index (A-L): 33.21 ml/m Ao Diam: 3.4 cm (2.0 - 3.7) AV Cusp: 1.8 cm (1.5 - 2.6) LA Diam: 4.5 cm (2.7 - 3.8) MV EXCURSION: 17.686 mm (> 18.000) MV EF SLOPE: 75 mm/s (70 - 150) EPSS: 0.9 cm MV E Andrei: 0.71 m/s MV DecT: 215 ms MV A Andrei: 0.29 m/s MV E/A Ratio: 2.45 RAP: 5.00 mmHg RVSP: 29.82 mmHg FINDINGS -------- Pacerwire seen in RV and RA. This was a techncally difficult study with suboptimal views, , Lumason utilized for enhancement of im ages. The left ventricular size is normal. Overall left ventricular systolic function is mild-moderately impaired with, an EF between 40 - 45 %. Mid anterior LV wall motion is hypokinetic. Mid anterose ptal LV wall motion is hypokinetic. Apical anterior LV wall motion is hypokinetic. Apical septu m LV wall motion is hypokinetic. The right ventricle is normal in size. LA is midly dilated 29-33ml/m2. The right atrial size is normal. 5.0mg OF Lumason UTLIZED: 2 OR MORE WALL SEGMENTS NOT VISUALIZED. There is moderate aortic valve sclerosis. There is mild aortic regurgitation. Peak/mean gradient across the Aortic Valve is {AV maxPG} / {AV meanPG}. Mild mitral annular calcification present. Mild mitral regurgitation is present. The tricuspid valve appears structurally normal. Mild tricuspid regurgitation present. Right vent ricular systolic pressure is normal at < 35 mmHg. Trace/mild (physiologic) pulmonic regurgitation. The aortic root size is normal. There is no pericardial effusion. CONCLUSIONS -------- 1. Pacerwire seen in RV and RA. 2. This was a techncally difficult study with suboptimal views, , Lumason utilized for enhancement of images. 3. The left ventricular size is normal. 4. Overall left ventricular systolic function is mild-moderately impaired with, an EF between 40 - 45 %. 5. Mid anterior LV wall motion is hypokinetic. 6. Mid anteroseptal LV wall motion is hypokinetic. 7. Apical anterior LV wall motion is hypokinetic. 8. Apical septum LV wall motion is hypokinetic. 9. LA is midly dilated 29-33ml/m2. 10. 5.0mg OF Lumason UTLIZED: 2 OR MORE WALL SEGMENTS NOT VISUALIZED. 11. There is moderate aortic valve sclerosis. 12. There is mild aortic regurgitation. 13. Peak/mean gradient across the Aortic Valve is {AV maxPG} / {AV meanPG}. 14. Mild mitral annular calcification present. 15. Mild mitral regurgitation is present. 16. Mild tricuspid regurgitation present. 17. Trace/mild (physiologic) pulmonic regurgitation. 18. There is no pericardial effusion. YARDING AND FOLDING MACHINE OPERATOR: Rosanna Stout RDCS
--- NOTE | 2021-02-28 13:38 | P.CNNES ---
History of Present Illness Consult date: 02/28/21 Requesting physician: Miguel Angel Campos Reason for Consult: CVA History of Present Illness: Patient is a 80-year-old male with history of dementia, came to the hospital yesterday at 4:13 PM for uncontrolled blood pressure and right facial numbness. Patient tells me that he went to a routine checkup with his PCP. He was noted to have high blood pressure and he was recommended to go to the ER for evaluation. Upon asking about the numbness, patient states that he had numbness of right side of the face couple days ago, this lasted for 1-2 hours. Patient's arrived later, who provided a different history. She states that patient is on Coumadin because of presence of pacemaker. Patient had a routine blood test for INR check by Dr Benavides, and they were called that his blood is "thick", and the dose of Coumadin was increased. However yesterday morning when he woke up, complained of numbness of right side of the face and there was some droopiness of the right facial region. Patient's called Dr. Benavides's office, who recommended them to go to ER for further evaluation. Per patient's , the symptoms of the right facial numbness/droop lasted for about 9 hours. There was no focal numbness tingling involving extremities, problem with the vision, or other stroke symptoms. Vital signs on arrival blood pressure 209/120, pulse rate 66 and temperature 98.3. Patient's blood pressure stayed high between 174-[address] head showed no acute abnormality. Age-related changes of atrophy and probable chronic small vessel ischemia. EKG with ventricular paced rhythm, abnormal ECG. Chest x-rays so showed no acute process. Carotid Doppler revealed no hemodynamic significant stenosis of the proximal ICA. Antegrade flow in both vertebral arteries. CBC is normal. INR 1.7, PTT 25.9. Chem-7 is normal. Hepatic panel normal. Troponin negative. Smith virus PCR negative. Patient's previous lipid panel from 02/20/2020 showed cholesterol 133, LDL 59.2, HDL 62 and triglycerides 59. Patient currently on Coumadin, Pravachol 40 mg, Singulair 10 mg, doxazosin 8 mg daily, atenolol 50 mg daily, B12 1000 g, losartan 50 mg twice a day, donepezil 5 mg, memantine 5 mg daily. He takes aspirin only if he has a headache, which is not very common, only about once a month. He has hypertension for long time, denies diabetes. Review of Systems As above in detail. Denies any chest pain, abdominal pain, nausea vomiting diarrhea. Denies any double vision, loss of vision. Denies any pain in the ears, does have mild hearing loss. Denies any incontinence, denies any fevers chills, anxiety depression, neurological as above. Past Medical History Past Medical History: Coronary Artery Disease (CAD), Dementia, Hyperlipidemia, Hypertension History of Any Multi-Drug Resistant Organisms: None Reported Past Surgical History: Hernia Repair, Pacemaker Type of Cardiac Device: Permanent Pacemaker Device Placement Date:: unknown Past Psychological History: No Psychological Hx Reported Smoking Status: Never smoker Past Alcohol Use History: None Reported Past Drug Use History: None Reported - Past Family History Mother Family Medical History: Hyperlipidemia, Hypertension, Myocardial Infarction (MT) Father Family Medical History: Hyperlipidemia, Hypertension, Myocardial Infarction (MT) Medications and Allergies Home Medications Medication Instructions Recorded Confirmed Type Atenolol [Tenormin] 50 mg PO DAILY 09/10/20 02/27/21 History Doxazosin Mesylate 8 mg PO DAILY 09/10/20 02/27/21 History Montelukast [Singulair] 10 mg PO DAILY 09/10/20 02/27/21 History Pravastatin Sodium [Pravachol] 40 mg PO DAILY 09/10/20 02/27/21 History Warfarin Sodium [Jantoven] 2.5 mg PO CURIEL 09/10/20 02/27/21 History Warfarin Sodium [Jantoven] 5 mg PO MOTUWETHFRSA 09/10/20 02/27/21 History Cyanocobalamin (Vitamin B-12) 1,000 mcg PO DAILY 02/27/21 02/27/21 History [Vitamin B-12] Donepezil HCl [Aricept] 5 mg PO DAILY 02/27/21 02/27/21 History Ergocalciferol (Vitamin D2) 1,250 mcg PO TH 02/27/21 02/27/21 History [Drisdol (50,000 Iu)] HYDROcodone/APAP 5-325MG [[place] 1 tab PO QID PRN 02/27/21 02/27/21 History 5-325] Losartan Potassium 50 mg PO BID 02/27/21 02/27/21 History Memantine HCl 5 mg PO DAILY 02/27/21 02/27/21 History Allergies Allergy/AdvReac Type Severity Reaction Status Date / Time No Known Allergies Allergy Verified 02/27/21 17:41 Physical Examination - Vital Signs Vital Signs: Vital Signs Temp Pulse Pulse Resp BP BP BP 02/28/21 04:00 64 18 174/88 02/28/21 00:00 70 18 189/95 02/27/21 21:40 88 202/118 213/105 02/27/21 21:10 98.1 F 100 18 205/117 02/27/21 20:02 98.3 F 64 16 191/99 02/27/21 19:18 196/101 02/27/21 18:31 61 16 203/112 02/27/21 18:00 98.3 F 74 16 212/114 02/27/21 17:30 98.3 F 62 16 188/111 02/27/21 17:15 98.3 F 64 16 188/102 02/27/21 17:00 98.3 F 62 16 196/101 02/27/21 16:45 98.3 F 68 16 201/104 02/27/21 16:42 98.3 F 74 16 02/27/21 16:35 98.3 F 66 16 209/120 02/27/21 16:21 98.3 F 66 20 209/120 Pulse Ox 02/28/21 04:00 97 02/28/21 00:00 97 02/27/21 21:40 02/27/21 21:10 98 02/27/21 20:02 98 02/27/21 19:18 02/27/21 18:31 02/27/21 18:00 98 02/27/21 17:30 97 02/27/21 17:15 98 02/27/21 17:00 97 02/27/21 16:45 98 02/27/21 16:42 98 02/27/21 16:35 99 02/27/21 16:21 99 Intake and Output 02/27/21 02/28/21 02/28/21 22:59 06:59 14:59 Other: # Voids 1 3 Weight 83.915 kg 81.8 kg Patient is an elderly male, in no acute distress. Patient is alert and awake. Patient states it is April and the year is 2019. He thinks it is summer season. Patient knows that he is in [facility] in [place]. He could not tell me name of the current president. I gave him 4 choices including Mr. Navarro, still could not pick the right name. I asked if it was Mr. Peres is the current president, patient states yes. Patient is alert awake. Speech and language functions are normal. Attention, concentration and fund of knowledge is limited. Detail cognitive function testing deferred. On cranial examination, pupils are round and reacting to light, visual arguello are full on confrontation with no neglect, extraocular muscles are intact with no nystagmus. Face is symmetric, tongue protrudes to the midline. Palatal elevation and sensation normal, hearing is mildly decreased for finger rubbing, normal for routine conversation and shoulder shrug normal, facial sensation normal. On muscle strength testing, there is no pronator drift and the strength is normal in arms and legs distally and proximally. Deep tendon reflexes are 1+ to 2 and symmetric, plantars downgoing. Sensory to touch is equal with no neglect. Cerebellar function showed no ataxia for [id number] testing. No dysdiadochokinesia. Tone and bulk of muscles normal. Gait normal for age. On general examination, there is no carotid bruit or murmur, S1-S2 audible. Abdomen is soft nontender. Chest is clear. Peripheral pulses are present. No edema. Results - Laboratory Findings CBC and BMP: 02/27/21 16:39 02/27/21 16:39 Abnormal Lab Findings: Abnormal Labs 02/27/21 02/27/21 02/27/21 16:39 16:39 16:39 Plt Count 145 L PT 16.6 H INR 1.7 H Glucose 120 H POC Glucose (mg/dL) Alkaline Phosphatase 140 H 02/27/21 02/28/21 16:42 07:52 Plt Count PT 17.3 H INR 1.7 H Glucose POC Glucose (mg/dL) 126 H Alkaline Phosphatase Assessment and Plan Assessment: * Probable TIA manifesting with transient numbness of the right facial region * Hypertension * Dementia * Hyperlipidemia * Coronary artery disease * Pacemaker. Plan: * Patient had a possible TIA, symptoms now resolved. Patient is on Coumadin, INR is subtherapeutic at 1.7. Consider bridging with Lovenox. Optimize INR between 2-3. * Patient cannot have MRI because of pacemaker. * Carotid Doppler revealed no hemodynamic significant stenosis of the proximal ICA. Antegrade flow in both vertebral arteries. * 2-D echo revealed pacemaker wire seen in RV and RA. Left-ventricular systolic function is mild to moderately impaired ejection fraction between 40-45%. Mid anterior, mid anteroseptal, apical anterior, apical septum left ventricular wall motion is hypokinetic. Left atrium is mildly dilated. Moderate aortic valve sclerosis. * We will check lipid panel and hemoglobin A1c. Continue statins. * Telemetry monitoring showing V paced rhythm.
[2021-02-28 13:43] LABS: Chol/HDL Ratio 2.34
[2021-02-28] MEDS ORDERED: WARFARIN 5 MG TAB PO ONE (18:00)
[2021-02-28] MEDS: ATORVASTATIN 80 MG TAB PO SCH (20:00)
--- NOTE | 2021-02-28 21:28 | P.HPIM ---
History of Present Illness H&P Date: 02/28/21 Chief Complaint: Right-sided facial numbness Patient is a 80-year-old male with a known history of hypertension, hyperlipidemia, history of pacemaker placement due to sick sinus and irregular rhythm on anticoagulation with warfarin, no prior history of blood clots was sent to ER by his primary care physician due to elevated blood pressure. Patient went to see his primary care physician where he was found his systolic pressure greater than 200mmHg. Patient states that he also felt numbness of the right side of the face, initially about 2 days ago which lasted for about 1 to 2 hours. He he felt again right facial numbness and was also droopiness of the right side facial region as per his . There is no slurred speech. No blurring of the vision. No focal weakness. Patient does not know why he is Coumadin. He does have history of pacemaker placement. No complaints of chest pain. No nausea vomiting or abdominal pain or diarrhea. No dizziness or lightheadedness. No fever no chills. No cough or sputum production. Denies any recent illnesses. Admission blood pressure was 209/[address] head showed no acute abnormality. Age-related changes of atrophy and probable chronic small vessel ischemia. Chest x-ray showed no acute cardiopulmonary process. EKG showed ventricular paced rhythm. Carotid, showed no significant stenosis. 2D echocardiogram showed EF 40 to 45%. Hypokinetic. Moderate aortic valve sclerosis. Mild AR. Laboratory data showed WBC 6.9 hemoglobin 15.6 and platelets 145 INR 1.7 Sodium 140 potassium 4.0 chloride 107 bicarb is 26 BUN 19 and creatinine 1.18 and blood sugar is 120 AST 22 ALT 39 alk phos 140 Troponin I 0.012 LDL 65 Coronavirus PCR not detected INR is 1.7 Review of Systems Constitutional: Patient denies any fever or chills . No generalized weakness or weight loss. Abdomen: Patient denied nausea vomiting and diarrhea and abdominal pain. Cardiovascular: Patient denies any chest pain or short of breath no palpitations. Respiratory: patient denied any cough or sputum production. No shortness of breath Neurologic: Patient denied any numbness or tingling headache. Musculoskeletal: Patient denies any complaints of joint swelling or deformity. Skin: Negative Psychiatric: Negative Endocrine: No heat or cold intolerance. No recent weight gain. Genitourinary: No dysuria or hematuria. All other 14 point ROS negative except the above Past Medical History Past Medical History: Coronary Artery Disease (CAD), Dementia, Hyperlipidemia, Hypertension History of Any Multi-Drug Resistant Organisms: None Reported Past Surgical History: Hernia Repair, Pacemaker Type of Cardiac Device: Permanent Pacemaker Device Placement Date:: unknown Past Psychological History: No Psychological Hx Reported Smoking Status: Never smoker Past Alcohol Use History: None Reported Past Drug Use History: None Reported - Past Family History Mother Family Medical History: Hyperlipidemia, Hypertension, Myocardial Infarction ([place]) Father Family Medical History: Hyperlipidemia, Hypertension, Myocardial Infarction ([place]) Medications and Allergies Home Medications Medication Instructions Recorded Confirmed Type Atenolol [Tenormin] 50 mg PO DAILY 09/10/20 02/27/21 History Doxazosin Mesylate 8 mg PO DAILY 09/10/20 02/27/21 History Montelukast [Singulair] 10 mg PO DAILY 09/10/20 02/27/21 History Pravastatin Sodium [Pravachol] 40 mg PO DAILY 09/10/20 02/27/21 History Warfarin Sodium [Jantoven] 2.5 mg PO CURIEL 09/10/20 02/27/21 History Warfarin Sodium [Jantoven] 5 mg PO MOTUWETHFRSA 09/10/20 02/27/21 History Cyanocobalamin (Vitamin B-12) 1,000 mcg PO DAILY 02/27/21 02/27/21 History [Vitamin B-12] Donepezil HCl [Aricept] 5 mg PO DAILY 02/27/21 02/27/21 History Ergocalciferol (Vitamin D2) 1,250 mcg PO TH 02/27/21 02/27/21 History [Drisdol (50,000 Iu)] HYDROcodone/APAP 5-325MG [[place] 1 tab PO QID PRN 02/27/21 02/27/21 History 5-325] Losartan Potassium 50 mg PO BID 02/27/21 02/27/21 History Memantine HCl 5 mg PO DAILY 02/27/21 02/27/21 History Allergies Allergy/AdvReac Type Severity Reaction Status Date / Time No Known Allergies Allergy Verified 02/27/21 17:41 Physical Exam Vitals: Vital Signs Temp Pulse Pulse Resp BP BP BP 02/28/21 04:00 64 18 174/88 02/28/21 00:00 70 18 189/95 02/27/21 21:40 88 202/118 213/105 02/27/21 21:10 98.1 F 100 18 205/117 02/27/21 20:02 98.3 F 64 16 191/99 02/27/21 19:18 196/101 02/27/21 18:31 61 16 203/112 02/27/21 18:00 98.3 F 74 16 212/114 02/27/21 17:30 98.3 F 62 16 188/111 02/27/21 17:15 98.3 F 64 16 188/102 02/27/21 17:00 98.3 F 62 16 196/101 02/27/21 16:45 98.3 F 68 16 201/104 02/27/21 16:42 98.3 F 74 16 02/27/21 16:35 98.3 F 66 16 209/120 02/27/21 16:21 98.3 F 66 20 209/120 Pulse Ox 02/28/21 04:00 97 02/28/21 00:00 97 02/27/21 21:40 02/27/21 21:10 98 02/27/21 20:02 98 02/27/21 19:18 02/27/21 18:31 02/27/21 18:00 98 02/27/21 17:30 97 02/27/21 17:15 98 02/27/21 17:00 97 02/27/21 16:45 98 02/27/21 16:42 98 02/27/21 16:35 99 02/27/21 16:21 99 Intake and Output 02/27/21 02/28/21 02/28/21 22:59 06:59 14:59 Other: # Voids 1 3 Weight 83.915 kg 81.8 kg PHYSICAL EXAMINATION: Patient is lying in the bed comfortably, no acute distress, awake alert and oriented.. HEENT: Normocephalic. Neck is supple. Pupils reactive. Nostrils clear. Oral cavity is moist. Neck reveals no JVD, carotid bruits, or thyromegaly. CHEST EXAMINATION: Trachea is central. Symmetrical expansion. Lung arguello clear to auscultation and percussion. CARDIAC: Normal S1, S2 with no gallops. No murmurs , Irregular rhythm. ABDOMEN: Soft. Bowel sounds normal. No organomegaly. No abdominal bruits. Extremities: reveal no edema. No clubbing or cyanosis Neurologically awake, alert, oriented x3 with well-coordinated movements. No focal deficits noted Skin: No rash or skin lesions. Psychiatric: Coperative. Nonsuicidal Musculoskeletal: No joint swelling or deformity. Normal range of motion. Results CBC & Chem 7: 02/27/21 16:39 02/27/21 16:39 Labs: Abnormal Lab Results - Last 24 Hours (Table) 02/27/21 02/27/21 02/27/21 Range/Units 16:39 16:39 16:39 Plt Count 145 L (150-450) k/uL PT 16.6 H (9.0-12.0) sec INR 1.7 H (<1.2) Glucose 120 H (74-99) mg/dL POC Glucose (mg/dL) (75-99) mg/dL Alkaline Phosphatase 140 H (38-126) U/L 02/27/21 02/28/21 Range/Units 16:42 07:52 Plt Count (150-450) k/uL PT 17.3 H (9.0-12.0) sec INR 1.7 H (<1.2) Glucose (74-99) mg/dL POC Glucose (mg/dL) 126 H (75-99) mg/dL Alkaline Phosphatase (38-126) U/L Thrombosis Risk Factor Assmnt - DVT/VTE Prophylaxis DVT/VTE Prophylaxis: Pharmacologic Prophylaxis ordered - Choose All That Apply Any of the Below Risk Factors Present?: No Other Risk Factors: No Each Risk Factor Represents 3 Points: Age 75 years or older Other congenital or acquired thrombophilia - If yes, enter type in comment: No Thrombosis Risk Factor Assessment Total Risk Factor Score: 3 Thrombosis Risk Factor Assessment Level: Very Low Risk Assessment and Plan Assessment: Right-sided facial numbness and droopiness likely due to TIA. resolved now. Hypertensive urgency on admission History of pacemaker placement due to sick sinus History of irregular rhythm on anticoagulation with Coumadin. Hypertension Hyperlipidemia DVT prophylaxis with heparin subcu Plan: Patient will be continued on telemetry monitoring. Patient is currently on ventricular paced rhythm. Continue with blood pressure medications including Coreg, losartan . Continue with stroke work-up including CT head, carotid duplex,. MRI of the brain could not be done due to pacemaker placement. TSH, B12 and folate and A1c levels ordered. Neurology is on board. Continue to follow closely. Time with Patient: Greater than 30
[2021-02-28 21:37] VITALS: RESP 18
[2021-03-01] MEDS: carvediloL 12.5 MG TAB PO SCH (06:39)
[2021-03-01] MEDS ORDERED: ASPIRIN 325 MG TAB PO SCH (09:00)
[2021-03-01] MEDS: MEMANTINE 5 MG TAB PO SCH (09:02)
[2021-03-01] MEDS: DOXAZOSIN 4 MG TAB PO SCH (09:02)
[2021-03-01] MEDS: MONTELUKAST 10 MG TAB PO SCH (09:02)
[2021-03-01] MEDS: LOSARTAN 50 MG TAB PO SCH (09:02)
[2021-03-01] MEDS: DONEPEZIL 5 MG TAB PO SCH (09:04)
[2021-03-01 09:27] LABS: INR 1.7 (<1.2); Prothrombin Time 17.1 sec (9.0-12.0)
[2021-03-01 10:58] VITALS: TEMP 97.2
[2021-03-01] MEDS ORDERED: amLODIPine 5 MG TAB PO SCH (11:15)
[2021-03-01] MEDS ORDERED: FOLIC ACID 1 MG TAB PO SCH (12:30)
[2021-03-01] MEDS ORDERED: ENOXAPARIN 80 MG/0.8 ML SYRINGE SQ SCH (15:24)
[2021-03-01 16:33] VITALS: BP 189/93; PULSE 60
[2021-03-01] MEDS ORDERED: WARFARIN 5 MG TAB PO ONE (18:00)
[2021-03-03] MEDS ORDERED: WARFARIN 5 MG TAB PO SCH (22:07)
--- NOTE | 2021-03-20 11:56 | P.DS ---
Providers Date of admission: 02/27/21 19:06 Expected date of discharge: 03/01/21 Attending physician: Justino Alcocer Consults: 02/27/21 19:05 Consult Physician Routine Consulting Provider: Lopez Bowens Consult Reason/Comments: CVA Do you want consulting provider notified?: Yes Primary care physician: Gloria De Leon [facility] Course: Discharge diagnosis Right-sided facial numbness and droopiness likely due to TIA. Resolved. resolved now. Hypertensive urgency on admission History of pacemaker placement due to sick sinus History of irregular rhythm on anticoagulation with Coumadin. Hypertension Hyperlipidemia DVT prophylaxis with heparin subcu Hospital course Patient is a 80-year-old male with a known history of hypertension, hyperlipidemia, history of pacemaker placement due to sick sinus and irregular rhythm on anticoagulation with warfarin, no prior history of blood clots was sent to ER by his primary care physician due to elevated blood pressure. Patient went to see his primary care physician where he was found his systolic pressure greater than 200mmHg. Patient states that he also felt numbness of the right side of the face, initially about 2 days ago which lasted for about 1 to 2 hours. He he felt again right facial numbness and was also droopiness of the right side facial region as per his . There is no slurred speech. No blurring of the vision. No focal weakness. Patient does not know why he is Coumadin. He does have history of pacemaker placement. No complaints of chest pain. No nausea vomiting or abdominal pain or diarrhea. No dizziness or lightheadedness. No fever no chills. No cough or sputum production. Denies any recent illnesses. Admission blood pressure was 209/[address] head showed no acute abnormality. Age-related changes of atrophy and probable chronic small vessel ischemia. Chest x-ray showed no acute cardiopulmonary process. EKG showed ventricular paced rhythm. Carotid, showed no significant stenosis. 2D echocardiogram showed EF 40 to 45%. Hypokinetic. Moderate aortic valve sclerosis. Mild AR. Laboratory data showed WBC 6.9 hemoglobin 15.6 and platelets 145 INR 1.7 Sodium 140 potassium 4.0 chloride 107 bicarb is 26 BUN 19 and creatinine 1.18 and blood sugar is 120 AST 22 ALT 39 alk phos 140 Troponin I 0.012 LDL 65 Coronavirus PCR not detected INR is 1.7 Patient was continued on telemetry monitoring. Patient is currently on ventricular paced rhythm. Continue with blood pressure medications including Coreg, losartan . Continue with stroke work-up including CT head, carotid duplex,. MRI of the brain could not be done due to pacemaker placement. TSH, B12 and folate and A1c levels ordered. Neurology has seen the patient Carotid duplex showed no hemodynamic significant stenosis. 2-D echo cardiac exam showed pacemaker wire seen in RV and LV a left ventricular systolic function is mild to moderately impaired with EF 40-45%.. Patient was started on folate supplementation. Cleared from neurology standpoint. Patient be continued on warfarin and bridging dose of Lovenox was ordered. Patient was recommended to follow-up with neurology as an outpatient. Titrated blood pressure medications. PHYSICAL EXAMINATION: Patient is lying in the bed comfortably, no acute distress, awake alert and oriented.. HEENT: Normocephalic. Neck is supple. Pupils reactive. Nostrils clear. Oral cavity is moist. Neck reveals no JVD, carotid bruits, or thyromegaly. CHEST EXAMINATION: Trachea is central. Symmetrical expansion. Lung arguello clear to auscultation and percussion. CARDIAC: Normal S1, S2 with no gallops. No murmurs ABDOMEN: Soft. Bowel sounds normal. No organomegaly. No abdominal bruits. Extremities: reveal no edema. No clubbing or cyanosis Neurologically awake, alert, oriented x3 with well-coordinated movements. No focal deficits noted Skin: No rash or skin lesions. Psychiatric: Coperative. Nonsuicidal Musculoskeletal: No joint swelling or deformity. Normal range of motion. Discharge vitals reviewed. Total time taken greater than 35 minutes including 18 minutes for counseling and coordination of care. * Patient Condition at Discharge: Stable Plan - Discharge Summary Discharge Rx Participant: No New Discharge Prescriptions: New carvediloL [Coreg*] 12.5 mg PO BID-W/MEALS #60 tab Folic Acid 1 mg PO DAILY #30 tab Enoxaparin [Lovenox] 80 mg SQ Q12HR 2 Days #4 syringe Continue Warfarin Sodium [Jantoven] 2.5 mg PO CURIEL Pravastatin Sodium [Pravachol] 40 mg PO DAILY Montelukast [Singulair] 10 mg PO DAILY Warfarin Sodium [Jantoven] 5 mg PO MOTUWETHFRSA Doxazosin Mesylate 8 mg PO DAILY Losartan Potassium 50 mg PO BID Donepezil HCl [Aricept] 5 mg PO DAILY Ergocalciferol (Vitamin D2) [Drisdol (50,000 Iu)] 1,250 mcg PO TH HYDROcodone/APAP 5-325MG [[place] 5-325] 1 tab PO QID PRN PRN Reason: Pain Memantine HCl 5 mg PO DAILY Discontinued Atenolol [Tenormin] 50 mg PO DAILY Cyanocobalamin (Vitamin B-12) [Vitamin B-12] 1,000 mcg PO DAILY Discharge Medication List Doxazosin Mesylate 8 mg PO DAILY 09/10/20 [History] Montelukast [Singulair] 10 mg PO DAILY 09/10/20 [History] Pravastatin Sodium [Pravachol] 40 mg PO DAILY 09/10/20 [History] Warfarin Sodium [Jantoven] 2.5 mg PO CURIEL 09/10/20 [History] Warfarin Sodium [Jantoven] 5 mg PO MOTUWETHFRSA 09/10/20 [History] Donepezil HCl [Aricept] 5 mg PO DAILY 02/27/21 [History] Ergocalciferol (Vitamin D2) [Drisdol (50,000 Iu)] 1,250 mcg PO TH 02/27/21 [History] HYDROcodone/APAP 5-325MG [[place] 5-325] 1 tab PO QID PRN 02/27/21 [History] Losartan Potassium 50 mg PO BID 02/27/21 [History] Memantine HCl 5 mg PO DAILY 02/27/21 [History] Enoxaparin [Lovenox] 80 mg SQ Q12HR 2 Days #4 syringe 03/01/21 [Rx] Folic Acid 1 mg PO DAILY #30 tab 03/01/21 [Rx] carvediloL [Coreg*] 12.5 mg PO BID-W/MEALS #60 tab 03/01/21 [Rx] Follow up Appointment(s)/Referral(s): Hieu Velasquez MD [REFERRING] - 1 Week (Neurologist) Kevin Ritchie MD [Medical Doctor] - 1 Week (Neurologist ) Cyril Lane DO [STAFF PHYSICIAN] - 1 Week (Neurologist) Gloria De Leon MD [Primary Care Provider] - 1-2 days (Please call and schedule appointment when office reopens.) Patient Instructions/Handouts: Ischemic Stroke (DC) Discharge Disposition: HOME WITH HOME HEALTH SERVICES
== END 2021-03-01 16:55 | disposition home health service (06) | DRG 69 ==
LOC: EC 16:13 → 3SCARD 19:06
PROVIDERS: ADMIT Hospitalist; ATTEND Hospitalist
DX: G45.9 Transient cerebral ischemic attack, unspecified (principal); I25.10 Atherosclerotic heart disease of native coronary artery without angina pectoris; F03.90 Unspecified dementia, unspecified severity, without behavioral disturbance, psychotic disturbance, mood disturbance, and anxiety; I16.0 Hypertensive urgency; E78.5 Hyperlipidemia, unspecified; Z20.822 Contact with and (suspected) exposure to COVID-19; I10 Essential (primary) hypertension; R29.701 NIHSS score 1; R29.810 Facial weakness; Z79.01 Long term (current) use of anticoagulants; Z79.82 Long term (current) use of aspirin; Z79.899 Other long term (current) drug therapy; Z82.49 Family history of ischemic heart disease and other diseases of the circulatory system; Z95.0 Presence of cardiac pacemaker
CPT/HCPCS: 36415; 70450; 71046; 80053; 80061; 82607; 82746; 84484; 85025; 85610; 85730; 87635; 93005; 93306; 93880; 99285

== ENCOUNTER → 2021-07-17 | Outpatient (CLI) | payer MEDICARE ==
--- NOTE | 2021-07-17 13:10 | XR ---
EXAMINATION TYPE: XR elbow complete LT DATE OF EXAM: 07/17/2021 COMPARISON: NONE HISTORY: 80-year-old male [id number], left elbow injury and pain TECHNIQUE: 3 views FINDINGS: No elbow joint effusion. Some medial sided soft tissue swelling. No acute fracture, subluxation, or d islocation. IMPRESSION: No acute osseous abnormality seen. There seems to be some medial sided soft tissue swelling.
== END | disposition home or self-care (01) ==
LOC: RADXRYALE 10:09
PROVIDERS: ATTEND Internal Medicine
DX: S59.902A Unspecified injury of left elbow, initial encounter (principal); X58.XXXA Exposure to other specified factors, initial encounter

== ENCOUNTER 2021-07-19 11:14 | Emergency (ER) | payer MEDICARE ==
[2021-07-19 11:48] VITALS: BP 158/96; PULSE 83; RESP 18; TEMP 98.1
--- NOTE | 2021-07-19 12:19 | ED ---
General Adult HPI - General Chief complaint: Extremity Injury, Upper Stated complaint: Poss L Arm infection Source: patient, RN notes reviewed, old records reviewed Mode of arrival: ambulatory Limitations: no limitations - History of Present Illness Initial comments: This a 80-year-old male who presents emergency Department with a large area of ecchymosis on the left forearm. Patient states he bumped about a week ago and he is on eliquis. Patient states since then ecchymosis going down to his wrist and was elbow. Patient states is no pain he is able to use it it's not taut and he has no numbness or weakness. Patient started on Keflex from his primary in case symptoms of infection. Patient has no open wound or sore. - Related Data Home Medications Medication Instructions Recorded Confirmed Doxazosin Mesylate 8 mg PO DAILY 09/10/20 02/27/21 Montelukast [Singulair] 10 mg PO DAILY 09/10/20 02/27/21 Pravastatin Sodium [Pravachol] 40 mg PO DAILY 09/10/20 02/27/21 Warfarin Sodium [Jantoven] 2.5 mg PO CURIEL 09/10/20 02/27/21 Warfarin Sodium [Jantoven] 5 mg PO MOTUWETHFRSA 09/10/20 02/27/21 Donepezil HCl [Aricept] 5 mg PO DAILY 02/27/21 02/27/21 Ergocalciferol (Vitamin D2) 1,250 mcg PO TH 02/27/21 02/27/21 [Drisdol (50,000 Iu)] HYDROcodone/APAP 5-325MG [[place] 1 tab PO QID PRN 02/27/21 02/27/21 5-325] Losartan Potassium 50 mg PO BID 02/27/21 02/27/21 Memantine HCl 5 mg PO DAILY 02/27/21 02/27/21 Previous Rx's Medication Instructions Recorded Enoxaparin [Lovenox] 80 mg SQ Q12HR 2 Days #4 syringe 03/01/21 Folic Acid 1 mg PO DAILY #30 tab 03/01/21 carvediloL [Coreg*] 12.5 mg PO BID-W/MEALS #60 tab 03/01/21 Allergies Allergy/AdvReac Type Severity Reaction Status Date / Time No Known Allergies Allergy Verified 07/19/21 11:44 Review of Systems ROS Statement: Those systems with pertinent positive or pertinent negative responses have been documented in the HPI. ROS Other: All systems not noted in ROS Statement are negative. Past Medical History Past Medical History: Coronary Artery Disease (CAD), Dementia, Hyperlipidemia, Hypertension History of Any Multi-Drug Resistant Organisms: None Reported Past Surgical History: Hernia Repair, Pacemaker Type of Cardiac Device: Permanent Pacemaker Device Placement Date:: unknown Past Psychological History: No Psychological Hx Reported Smoking Status: Never smoker Past Alcohol Use History: None Reported Past Drug Use History: None Reported - Past Family History Mother Family Medical History: Hyperlipidemia, Hypertension, Myocardial Infarction ([place]) Father Family Medical History: Hyperlipidemia, Hypertension, Myocardial Infarction ([place]) General Exam - General Exam Comments Initial Comments: GENERAL Patient is well-developed and well-nourished. Patient is in mild distress. EYES Patient's pupils are equal and round. Extraocular motion is intact SKIN Unremarkable NEURO The patient is alert and oriented 3 PYSCH Patient has normal interpersonal interactions. MUSCULOSKELETAL Patient has a large area of ecchymosis on the anterior aspect of the left forearm that goes from the wrist to the elbow. There is no tension in that area there is no warmth there is no erythema there is no no loss of strength or sensation. Patient has good pulses and good cap refill Limitations: no limitations Course Vital Signs 07/19/21 11:44 Temperature 98.1 F Pulse Rate 83 Respiratory 18 Rate Blood Pressure 158/96 O2 Sat by Pulse 98 Oximetry Disposition Clinical Impression: Ecchymosis of forearm Disposition: HOME SELF-CARE Condition: Good Instructions (If sedation given, give patient instructions): Ecchymosis (ED) Is patient prescribed a controlled substance at d/c from ED?: No Referrals: Gloria De Leon MD [Primary Care Provider] - 1-2 days Time of Disposition: 12:19
== END 2021-07-19 12:30 | disposition home or self-care (01) ==
LOC: EC 11:14
DX: S50.12XA Contusion of left forearm, initial encounter (principal); I10 Essential (primary) hypertension; E78.5 Hyperlipidemia, unspecified; Z79.899 Other long term (current) drug therapy; Z86.79 Personal history of other diseases of the circulatory system; Z79.01 Long term (current) use of anticoagulants; X58.XXXA Exposure to other specified factors, initial encounter
CPT/HCPCS: 99282

== ENCOUNTER → 2021-11-05 | Outpatient (CLI) | payer MEDICARE ==
--- NOTE | 2021-11-05 12:16 | XR ---
EXAMINATION TYPE: PA chest and left rib series, 5 views DATE OF EXAM: 11/05/2021 Comparison: 02/27/2021 Clinical History: 80-year-old male [id number] PLEURODYNIA Findings: Left anterior chest wall pacemaker generator with right atrial and right ventricular leads. Heart nor mal size. Aortopulmonary vasculature within normal limits. No consolidation or pleural effusion. 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 No consolidation or pleural effusion. Suggestion of a tiny calcified granuloma periphery of the left base. No displaced left rib fracture is seen. Some of the ribs are slightly obscured by overlying pacemaker generator. Impression: No acute cardiopulmonary process. No displaced left rib fracture seen. Left-sided 2-lead pacemaker g enerator.
== END | disposition home or self-care (01) ==
LOC: RADXRYALE 08:36
PROVIDERS: ATTEND Internal Medicine
DX: R07.81 Pleurodynia (principal)

== ENCOUNTER → 2022-11-25 | Outpatient (CLI) | payer MEDICARE ==
--- NOTE | 2022-11-25 16:17 | P.PN ---
Progress Note - Text Progress Note Date: 11/25/22 This is a 81-year-old male patient is coming in regarding his obstructive sleep apnea. His last evaluation with me was on 02/19/2021 and the patient is coming in for a follow-up. The patient is known to have moderately severe disease and AHI of 23 and the patient has been maintained on CPAP therapy at a pressure of 10 cm of water. I think is having some issues with dementia. Over the past 2 months, he quits his treatment. I checked the compliance data on his machine. Over the past 180 days, the patient has used the machine a total of 131 days and the patient achieved more than 4 hours of usage 86 out of 180 days. The patient's has been averaging around 5.5 hours of CPAP use per night and the leak was in the order of 29 L/m and his AHI is down to 1.8. Nevertheless, for reason or another, the patient quits using his CPAP. He does not tell me why he quit using his CPAP machine. Meanwhile, it was noted that his blood pressure was running elevated and high. I'm not sure if he is taking any antihypertensive medication. Does not bring his blood pressure medication list with him today. I urged him to contact his primary care physician as soon as possible to discuss the elevated blood pressure. BP is 206/100 with a pulse of 61 and a respiration of 18 and a temperature of 98.2. Pulse ox is 98% on room air. Body mass index is 28.3 and his [place] score is at 3. Chronic body weight is 184 pounds. The patient appeared well nourished and normally developed. Vital signs as documented. Head exam is unremarkable. No scleral icterus or corneal arcus noted. Neck is without jugular venous distension, thyromegaly, or carotid bruits. Carotid upstrokes are brisk bilaterally. Lungs are clear to auscultation and percussion. Cardiac exam reveals the PMI to be normally sized and situated. Rhythm is regular. First and second heart sounds normal. No murmurs, rubs or gallops. Abdominal exam reveals normal bowel sounds, no masses, no organomegaly and no aortic enlargement. Extremities are nonedematous and both femoral and pedal pulses are normal.Examination of the skin revealed no evidence of significant rashes, suspicious appearing nevi or other concerning lesions.Neurologically, the patient is awake and alert and the patient does not have any focal neurological deficit. Cranial nerves are essentially intact. Assessment Obstructive sleep apnea moderately severe with an AHI of 23. Patient was being successfully treated with CPAP therapy and over the past 2 months he quit using his machine. Exact reason is not clear. He is unable to explain or give me a reasonable justification for him not using his CPAP. I think there may be a component of dementia also. Hypertension with elevated blood pressures Dementia Hyperlipidemia BPH Depression History of pacemaker Plan We'll are going to restart CPAP therapy. I switched him to an APAP mode pressures of 4/10 cm of water and I also gave him a dreamware nasal pillows. I urged him to contact his primary care physician as soon as possible to discuss his elevated blood pressure We'll continue to see him back in follow-up and I'll see him back in follow-up in a year's time.
== END ==
LOC: SLEEP 15:18
PROVIDERS: ATTEND Internal Medicine Critical Care Medicine
DX: G47.33 Obstructive sleep apnea (adult) (pediatric) (principal); I10 Essential (primary) hypertension; E78.5 Hyperlipidemia, unspecified; F03.93 Unspecified dementia, unspecified severity, with mood disturbance; N40.0 Benign prostatic hyperplasia without lower urinary tract symptoms; Z95.0 Presence of cardiac pacemaker
CPT/HCPCS: 99212